=== PATIENT | male | born 1975 | race Caucasian/White ===

== ENCOUNTER → 2017-10-27 | Outpatient (CLI) | payer OTHER | LOC: BMCIMAGING 10:45 | PROVIDERS: ATTEND Orthopaedic Surgery Hand Surgery | DX: S69.91XA Unspecified injury of right wrist, hand and finger(s), initial encounter (principal) ==

== ENCOUNTER 2018-12-19 22:55 | Emergency (ER) | payer BC ==
[2018-12-19] MEDS ORDERED: NS 1,000 ML IV ONE (23:23)
[2018-12-19] MEDS ORDERED: ACETAMINOPHEN 500 MG TAB PO ONE (23:23)
[2018-12-19] MEDS ORDERED: IBUPROFEN 200 MG TAB PO ONE (23:23)
[2018-12-19 23:31] LABS: PLATELET COUNT 201 10^3/uL (150-400)
--- NOTE | 2018-12-19 23:32 | EDPHY ---
H & P Stated Complaint: SOB, cough, fever, chills, dx PNA x1 week Time Seen by Provider: 12/19/18 23:04 HPI/ROS: HPI The patient presents with dry cough, chills, subjective fevers for the last 2 days. About 2 weeks ago he had a single day of myalgias, this was followed by a cough. He was seen at an urgent care and was diagnosed clinically with pneumonia and started on doxycycline which he is still taking. [place] [id number] [place] and there his symptoms of subjective fever , body aches, dry cough all became worse. His symptoms persisted. He has been taking some ibuprofen with improvement. He returned to [place] and had some improvement in his symptoms but with ongoing coughing so came to the emergency department. He did not have a flu shot this year. He was tested for the flu a few days ago and says this was negative.. REVIEW OF SYSTEMS 10 systems were reviewed and negative with the exception of the elements mentioned in the history of present illness. PMHx: Healthy Soc Hx: Airplane travel for work PHYSICAL General Appearance: Alert, no distress Eyes: Pupils equal and round no pallor or injection ENT, Mouth: Mucous membranes moist Respiratory: There are no retractions, lungs are clear to auscultation Cardiovascular: Regular rate and rhythm Gastrointestinal: Abdomen is soft and non-tender, no masses, bowel sounds normal Neurological: A&O, moves all extremities Skin: Warm and dry, no rashes Musculoskeletal: Neck is supple non tender Extremities: symmetrical, full range of motion Psychiatric: Patient is oriented X 3, there is no agitation Source: Patient Exam Limitations: No limitations - Personal History Current Tetanus/Diphtheria Vaccine: Yes - Medical/Surgical History Hx Asthma: No Hx Chronic Respiratory Disease: No Hx Diabetes: No Hx Cardiac Disease: No Hx Renal Disease: No Hx Cirrhosis: No Hx Alcoholism: No Hx HIV/AIDS: No Hx Splenectomy or Spleen Trauma: No Other PMH: DENIES - Social History Smoking Status: Never smoked Constitutional: Initial Vital Signs Temperature (C) 37.5 C 12/19/18 22:56 Heart Rate 98 12/19/18 22:56 Respiratory Rate 16 12/19/18 22:56 Blood Pressure 126/82 H 12/19/18 22:56 O2 Sat (%) 95 12/19/18 22:56 O2 Delivery Mode Room Air Allergies/Adverse Reactions: No Known Allergies Allergy (Unverified 07/04/16 21:31) Home Medications: Medication Instructions Recorded Doxycycline Monohydrate 12/19/18 Medical Decision Making - Diagnostics Imaging Results: CT scan of chest angio shows no pulmonary embolism, interpreted by direct Radiology. Chest x-ray two views is unremarkable. Interpreted by me. Imaging: I viewed and interpreted images myself Differential Diagnosis: Healthy 43-year-old man presents with 1 week of cough, subjective fevers, malaise, chills. Here, chest x-ray is performed and is unremarkable. Labs are normal except for elevated D-dimer of approximately 2. CT scan of chest angio was performed and is unremarkable. I suspect the patient is suffering from an upper respiratory tract infection. Have advised him of supportive measures and will issue an albuterol inhaler to help with his cough as DuoNeb helped him to feel better here. Vital signs are normal at time of discharge. - Data Points Laboratory Results: Laboratory Results 12/19/18 23:15 12/19/18 23:15 Medications Given: Discontinued Medications Acetaminophen (Tylenol) 1,000 mg PO EDNOW ONE Stop: 12/19/18 23:24 Last Admin: 12/19/18 23:33 Dose: 1,000 mg Albuterol Sulfate (Proventil Inh Prepack) 1 mdi TAKEHOME EDNOW ONE Stop: 12/20/18 00:58 Last Admin: 12/20/18 01:02 Dose: 1 mdi Albuterol/Ipratropium (Duoneb) 3 ml IH EDNOW ONE Stop: 12/20/18 00:07 Last Admin: 12/20/18 00:35 Dose: 3 ml Sodium Chloride (Ns) 1,000 mls @ 0 mls/hr IV EDNOW ONE; Wide Open PRN Reason: Protocol Stop: 12/19/18 23:24 Last Admin: 12/19/18 23:33 Dose: 1,000 mls Ibuprofen (Motrin) 400 mg PO EDNOW ONE Stop: 12/19/18 23:24 Last Admin: 12/19/18 23:33 Dose: 400 mg Departure - Departure Disposition: Home, Routine, Self-Care Clinical Impression: Cough, URI (upper respiratory infection) Condition: Good Instructions: Albuterol (By breathing), Upper Respiratory Infection (ED) Additional Instructions: I recommend you continue to take ibuprofen 400 mg, you can add acetaminophen 650 mg with this every 6 hr as needed for any pains or fever. You can use the albuterol inhaler 1-2 puffs every 4-6 hours as needed for your cough. You should make sure to get plenty of rest, see your primary care doctor in 1-2 days unless your completely better. Referrals: Shelby Ibarra MD [Primary Care Provider] - As per Instructions
[2018-12-20] MEDS ORDERED: IPRATROPIUM/ALBUTEROL 3 ML DEYVIAL IH ONE (00:06)
[2018-12-20] MEDS ORDERED: IOHEXOL 350mgI/ML (OMNIPAQUE) 150 ML BTL IV ONE (00:13)
[2018-12-20] MEDS ORDERED: ALBUTEROL INH PREPACK MDI TAKEHOME ONE (00:57)
[2018-12-20 01:06] VITALS: BP 126/71
--- NOTE | 2018-12-22 06:31 | CPEKG ---
Test Reason : OPEN Blood Pressure : / mmHG Vent. Rate : 089 BPM Atrial Rate : 089 BPM P-R Int : 194 ms QRS Dur : 082 ms QT Int : 331 ms P-R-T Axes : -05 002 033 degrees QTc Int : 403 ms Sinus rhythm Confirmed by Emy Hanley ([id number]) on 12/22/2018 6:30:55 AM Referred By: Emy Hanley Confirmed By:Emy Hanley
== END 2018-12-20 01:06 | disposition home or self-care (01) ==
DX: J06.9 Acute upper respiratory infection, unspecified (principal); R05 Cough; E86.9 Volume depletion, unspecified
CPT/HCPCS: Q9967